=== PATIENT | female | born 1970 | race Caucasian/White ===

== ENCOUNTER → 2016-06-23 | Outpatient (CLI) | payer BC ==
--- NOTE | 2016-07-05 11:38 | CODING QUERY NO DIAGNOSIS ---
: 1970 TREATMENT RENDERED WITHOUT A DIAGNOSIS To promote full compliance with coding requirements relating to patient care, physician participation is requested in all cases of informatica mdm developer uncertainty. Please assist us with providing a diagnosis/symptom for the test(s) below: A diagnosis/symptom was not documented on your Order. A valid diagnosis/symptom is required to bill all insurances. Please remember that we are unable to code a diagnosis of rule out, probable, possible, questionable, or suspected. Tests that require a diagnosis: * FUNGAL CULTURE HAIR DOS: 06/23/16 DIAGNOSIS: Provider Signature: Date: Thank you Soila Patten Health Information Management Once completed, please kindly fax back to [phone] For questions please call [phone]
== END | disposition home or self-care (01) ==
LOC: C.LABSPEC 15:31
PROVIDERS: ATTEND Podiatrist
DX: M79.674 Pain in right toe(s) (principal)

== ENCOUNTER → 2016-06-29 | Outpatient (CLI) | payer BC | END | disposition home or self-care (01) | LOC: C.LAB 10:26 | PROVIDERS: ATTEND Podiatrist | DX: B35.1 Tinea unguium (principal) ==

== ENCOUNTER → 2017-08-10 | Day surgery (SDC) | payer BC ==
[2017-06-20 10:52] VITALS: Ht 170.2 cm; Wt 82.3 kg
[~2017-08-10] VITALS: Ht 170.2 cm; Wt 82.3 kg
[~2017-08-10] MED LIST: ATROPINE SULFATE 0.1 MG/ML 5ML SYR IV PRN; BUPIVACAINE 0.5 % 5 MG/1 ML MPF 30ML VIAL ONE; CALC-51 PO; CLINDAMYCIN 600 MG/54 ML D5W IV SCH; CLINDAMYCIN PHOS 150 MG/ML 2 ML VIAL IV SCH; DEXAMETHASONE SOD INJ 4 MG/ML VIAL ONE; FENTANYL CITRATE INJ 50 MCG/1 ML 2 ML VIAL IV PRN; FENTANYL CITRATE INJ 50 MCG/1 ML 2 ML VIAL ONE; HYDR-3419 PO; KETOROLAC TROMETHAMINE 30 MG/ML VIAL IV. PRN; KETOROLAC TROMETHAMINE 30 MG/ML VIAL ONE; LACTATED RINGER'S 1000ML 1,000 ML IV SCH; LIDOCAINE HCL 2% 2 ML VIAL (20MG/ML) ONE; MIDAZOLAM HCL 1 MG/ML 2ML VIAL ONE; MULT-506 PO; ONDANSETRON INJ 2 MG/ML 2 ML VIAL IV PRN; ONDANSETRON INJ 2 MG/ML 2 ML VIAL ONE; PROPOFOL IV EMULSION 10 MG/ML 20 ML VIAL IV ONE; SODIUM CHLORIDE 0.9% 1000ML 1,000 ML IV SCH
--- NOTE | 2017-08-10 07:01 | History & Physical Bridge - [place] ---
H&P Re-Evaluation Bridge Note: I have examined the patient, reviewed the History & Physical and in the interval since the performance of the History & Physical I have noted the following changes of clinical significance: No changes noted
--- NOTE | 2017-08-10 08:04 | [facility] Post Operative Brief Note ---
Immediate Operative Summary Operative Date Aug 10, 2017. Pre-Operative Diagnosis Hallux Rigidus left Post-Operative Diagnosis Left Hallux Rigidus Procedure(s) Performed 1st metatarsophalangeal joint arthroplasty left Surgeon Dimitrios Juarez DPM Bun Panner Surgeon(s) none Estimated Blood Loss 2 cc Findings Consistent with Post-Op Diagnosis Specimens None Anesthesia Type General Complication(s) none Disposition Accompanied Pt To Recovery: no Disposition: Recovery Room / PACU
--- NOTE | 2017-08-10 08:19 | [facility] Operative Report ---
Operative Report Operative Date Aug 10, 2017. Pre-Operative Diagnosis Hallux Rigidus left Post-Operative Diagnosis Left Hallux Rigidus Procedure(s) Performed 1st metatarsophalangeal joint arthroplasty left Surgeon Dimitrios Juarez DPM Pensions Retirement Plan Specialist Surgeon(s) none Estimated Blood Loss 2 cc Specimens None Anesthesia Type General Complication(s) none Disposition no Recovery Room / PACU Indications Patient has failed conservative therapy as an outpatient for hallux rigidus. Please see full clinical notes for last HPI from my previous office visit. All risks benefits complications and alternatives to the procedure were dressed with the patient. She elects to proceed. Description of Procedure Patient was placed in the operating room table in normal supine position after being transferred from the preoperative holding area. After induction of general anesthesia, a left calf tourniquet was applied. A Lopez type field block was applied to the left first ray using 16 cc of 0.5% Marcaine plain. Left lower extremity was prepped and draped in the normal sterile fashion. Attention was then directed to the left dorsal metatarsal phalangeal joint. Skin incision was planned just medial to the extensor hallucis longus tendon. Incision was made and dissection was carried down through the subcutaneous tissues with care to retract all vital neurovascular structures appropriately. The extensor hallucis longus tendon was identified in a dorsal capsular incision was made. First metatarsophalangeal joint was exposed dissecting off the capsular and periosteal tissue. A McGlamry elevator was used to free up the plantar first metatarsophalangeal joint. Upon evaluation at the first metatarsal head, a large central defect approximately 1.0 cm around was noted centrally. There was a dorsal exostosis to the left first metatarsal head. Excessive bone was cleaned up using rongeurs and sagittal saw. Excellent range of motion was noted after a dorsal 1/8 of the first metatarsal head was removed. The residual defect in the center of the metatarsal was still noted to be present. At this time it was decided to use a 10 mm Cartiva the implant. Implant was inserted per Cartiva technique. Excellent alignment and positioning was noted. Excellent press-fit was noted. Positioning was confirmed on fluoroscopy. Excellent alignment was noted. Testing the first metatarsophalangeal joint, full range of motion up to 65 of dorsiflexion was noted intraoperatively. The surgical site was flushed with copious amounts of normal sterile saline. Incision site was closed with 3-0 Vicryl 4-0 Vicryl and 4-0 nylon a soft sterile dressing was applied to the left lower extremity and the tourniquet was deflated total tourniquet time was 36 minutes. Patient tolerated the procedure and anesthesia well. She was transferred from the PACU to the preoperative holding area with neurovascular status intact to the left lower extremity. I attest to the content of the Intraoperative Record and any orders documented therein. Any exceptions are noted below.
--- NOTE | 2017-08-10 08:33 | Discharge Instructions ---
Discharge Instructions Date of Service Aug 10, 2017. Visit Reason for Visit: Left Foot Hallux Rigidus, Pain Discharge Discharge Diagnosis / Problem: Left hallux rigidus Discharge Goals Goal(s): Improve function Activity Recommendations Activity Limitations: per Instructions/Follow-up section Lifting Limitations: no more than 5 pounds Exercise/Sports Limitations: none Shower/Bathe: keep incision dry Driving or Machine Use: no driving Weightbearing Status: Left weightbearing (as tolerated) Anesthesia . Post Anesthesia Instructions: If you have had General Anesthesia or IV Sedation: * Do not drive today. * Resume driving when surgeon permits. * Do not make important decisions or sign legal documents today. * Call surgeon for: 1. Temperature elevations greater than 101 degrees F. 2. Uncontrollable pain. 3. Excessive bleeding. 4. Persistent nausea and vomiting. 5. Medication intolerance (nausea, vomiting or rash). * For nausea and vomiting use only clear liquids such as: tea, soda, bouillon until nausea subsides, then gradually increase diet as tolerated. * If you have any concerns or questions, call your surgeon's office. If physician is unavailable and it is an emergency, call 911 or go to the nearest emergency room. . Diet Recommendations Recommended Home Diet: no limitations Procedures Procedures Performed: 1st metatarsophalangeal joint arthroplasty left Pending Studies Studies pending at discharge: no Medical Emergencies . Who to Call and When: Medical Emergencies: If at any time you feel your situation is an emergency, please call 911 immediately. . Non-Emergent Contact Non-Emergency issues call your: Surgeon Call Non-Emergent contact if: temperature is above 101, your pain is not controlled, wound has increased pain . . "Provider Documentation" section prepared by Dimitrios Juarez. .
[2017-08-10 08:49] VITALS: TEMP 36.6
--- NOTE | 2017-08-10 09:31 | Anesthesia Progress Nt - [facility] ---
Anesthesia Post Op Note Date & Time Aug 10, 2017 at 09:31 Vital Signs Pain Intensity: 0 Vital Signs Past 12 Hours Date Time Temp Pulse Resp B/P (MAP) Pulse Ox O2 Delivery O2 Flow Rate FiO2 08/10/17 09:25 62 16 109/73 (85) 100 Room Air 08/10/17 08:49 36.6 61 14 107/72 (84) 98 Room Air 08/10/17 08:47 61 14 98 08/10/17 08:47 61 14 08/10/17 08:45 111/67 08/10/17 08:45 36.6 61 16 111/67 97 Room Air 08/10/17 08:42 57 14 08/10/17 08:42 58 14 97 08/10/17 08:40 101/60 08/10/17 08:37 61 15 96 08/10/17 08:37 60 15 08/10/17 08:35 111/68 08/10/17 08:32 64 8 99 08/10/17 08:32 64 8 08/10/17 08:30 104/59 08/10/17 08:27 66 17 100 08/10/17 08:27 66 17 08/10/17 08:25 106/73 08/10/17 08:22 67 11 08/10/17 08:22 67 11 100 08/10/17 08:20 115/70 08/10/17 08:17 70 13 08/10/17 08:17 72 13 100 08/10/17 08:15 112/69 08/10/17 08:12 66 14 08/10/17 08:12 66 14 100 08/10/17 08:10 111/67 08/10/17 08:08 108/58 08/10/17 08:07 36.9 66 12 108/58 99 Mask 6 08/10/17 06:29 36.8 73 18 137/76 (96) 97 Room Air Notes Mental Status: alert / awake / arousable, participated in evaluation Pt Amnestic to Procedure: Yes Nausea / Vomiting: adequately controlled Pain: adequately controlled Airway Patency, RR, SpO2: stable & adequate BP & HR: stable & adequate Hydration State: stable & adequate Anesthetic Complications: no major complications apparent
[2017-08-10 10:00] VITALS: BP 109/71; PULSE 67; O2SAT 97
== END | disposition home or self-care (01) ==
LOC: X.SURG 06:05
PROVIDERS: ATTEND Podiatrist
DX: M20.22 Hallux rigidus, left foot (principal); B35.1 Tinea unguium; E66.3 Overweight; Z84.1 Family history of disorders of kidney and ureter